=== PATIENT | male | born 1955 ===

== ENCOUNTER 2022-04-14 12:19 | Day surgery (SDC) | payer MEDICARE ==
[~2022-04-14] VITALS: Ht 170.2 cm; Wt 81.5 kg
[2022-04-14 13:44] VITALS: BP 127/83; PULSE 63; TEMP 97
[2022-04-14] MEDS ORDERED: CRESTOR 10MG10 MG PO (13:51)
[2022-04-14] MEDS ORDERED: ZESTRIL 10MG10 MG PO (13:52)
[2022-04-14] MEDS ORDERED: PROTONIX20 MG PO (13:53)
[2022-04-14] MEDS ORDERED: VOLTAREN GEL 1%1 TU TP (13:53)
[2022-04-14] MEDS ORDERED: MULTI VITAMINS1 TAB PO (13:54)
[2022-04-14 15:15] VITALS: BP 124/80; PULSE 66; TEMP 97.1
[2022-04-14 15:30] VITALS: BP 122/80; PULSE 60
[2022-04-14 15:45] VITALS: BP 123/78; PULSE 60
--- NOTE | 2022-04-14 15:55 | NUR ---
1515 RETURNS TO ROOM 7 PER CART. AWAKE, ALERT. AMBULATES TO RECLINERE WITH STANDBY ASSIST. RESP UNLABORED. DENIES NAUSEA OR ABD PAIN. VITAL SIGNS OBTAINED. CALL LIGHT AT SIDE. SIGNIFICANT OTHER IN ROOM. 1525 TOLERATES PO MUFFIN AND WATER WITHOUT NAUSEA. 1530 DISCHARGE INSTRUCTIONS REVIEWED. PATIENT VERBALIZES UNDERSTANDING. COPY PROVIDED IN DISCHARGE FOLDER 1535 DR. SALAS HERE TO VISIT WITH PATIENT 1550 DRESSES SELF
== END 2022-04-14 15:55 | disposition home or self-care (01) ==
LOC: SDCO 12:19
DX: Z12.11 Encounter for screening for malignant neoplasm of colon (principal); K57.30 Diverticulosis of large intestine without perforation or abscess without bleeding; K64.1 Second degree hemorrhoids; Z87.891 Personal history of nicotine dependence
CPT/HCPCS: J2704; J7120